=== PATIENT | male | born 1955 | race Caucasian/White ===

== ENCOUNTER 2016-08-11 11:54 | Emergency (ER) | payer MEDICARE, MEDICAID ==
[~2016-08-11] VITALS: Ht 167.6 cm; Wt 75.5 kg
[~2016-08-11 11:54] MED LIST: OMEP20TA86 PO; OXYC-176 PO; VIS25 PO; [UNRECOGNIZED DRUG - CODE] TOP; [UNRECOGNIZED DRUG - CODE] TP
[2016-08-11 11:56] VITALS: BP 139/91; PULSE 102; RESP 20; O2SAT 97
--- NOTE | 2016-08-11 12:08 | ED.REPORT ---
HPI-Allergic Reaction Date of Service Aug 11, 2016 ED Provider: Bolivar Montoya MD A 61 year old male with a history of psoriasis, smoking, seizures, anxiety, depression, and similar rash presents to the ED complaining of a rash. The rash is characterized by redness and itching. The pt has a lifelong history of similar symptoms which "go into remission sometimes." The rash began to worsen again recently, and he began feeling short of breath with chest tightness in the last three days. He believes that these symptoms may be related to anxiety. The pt has an appointment for this condition in two days, but did not feel that he could not wait for this. He denies history of blood clot. Nursing Notes Stated Complaint: HIVES,CONGESTION Chief Complaint: Allergic Reaction Nursing Notes Reviewed: Yes Allergies: Coded Allergies: No Known Allergies (Verified , 10/24/08) Uncoded Allergies: POLLENS (Allergy, Severe, SEVERE HAY FEVER, HIVES, 11/07/06) STERIODS (Allergy, Unknown, BONE DISEASE, 11/07/06) Scheduled Omeprazole-Expunged Drug, Do Not Renew! (Omeprazole-Expunged Drug, Do Not Renew! ) 20 Mg Tablet.dr 20 MG PO DAILY Oxycodone/APAP-Expunged Drug, Do Not Renew! (Percocet 5/325-Expunged Drug, Do Not Renew!) 1 Each Tablet 1 TAB PO TIDP Prednisone (PredniSONE) 20 Mg Tablet 40 MG PO DAILY Triamcinolone Acet (Triamcinolone Acetonide Cream) 1 Applic/0.25 Gm Cr 1 APPLIC EXT BID hydrOXYzine Maite-Expunged Drug, Do Not Renew! (Vistaril-Expunged Drug, Do Not Renew!) 25 Mg Capsule 25 MG PO Q6H Scheduled PRN Calcitriol-Expunged Drug, Do Not Renew! (Calcitriol-Expunged Drug, Do Not Renew! ) 100 Gm Oint...g. 100 GM TP TID PRN PRN For Itching Clobetasol-Expunged Drug, Do Not Renew! (Temovate 0.05%-Expunged Drug, Do Not Renew!) 60 Mg Tube 1 APPL TOP DAILY PRN PRN For Itching APPLY TO AFFECTED AREA General Time Seen by MD: 12:07 Chief Complaint Rash Hx Obtained From: Patient Arrived By: Walk-in Onset Occurred: More than a week ago... 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 Cardiovascular: Denies: Chest pain Psychiatric: Reports: Anxiety Physical Exam Initial Vital Signs Vital Signs (First) Date Time Temp Pulse Resp B/P Pulse Ox O2 Delivery O2 Flow Rate FiO2 08/11/16 11:56 36.4 102 20 139/91 97 Room Air Initial VS: Reviewed General/Constitutional: Awake, Alert Respiratory / Chest: Atraumatic, Breath sounds NL, Breath sounds = bilat, No respiratory distress Cardiovascular: Heart rate NL, Regular rhythm, Heart sounds NL Skin: Atraumatic, Color NL, Warm, Dry erythematous patches with central clearing on chest and back not raised Head / Eyes: Atraumatic, Normocephalic, PERRL, EOMI ENT: Atraumatic, Airway patent, Mucous membranes moist Abdomen: Atraumatic, Soft, Non-tender Neurologic: Oriented X3, Speech NL, No motor deficits, No sensory deficits Neck: Atraumatic, Supple, Full range of motion Back: Atraumatic, Full range of motion Upper Extremity / MS: Atraumatic, Full range of motion Lower Extremity / Pelvis / MS: Atraumatic, Full range of motion Psychiatric: Affect NL, Mood NL Interpretation & Diagnostics Lab Results Interpretation Result Diagram: 08/11/16 1226 08/11/16 1226 Test 08/11/16 12:26 White Blood Count 7.3th/mm3 (3.8-10.1) Red Blood Count 4.61mil/mm3 (4.40-5.80) Hemoglobin 15.8g/dL (13.8-17.2) Hematocrit 45.5% (41.0-50.0) Mean Corpuscular Volume 98.7fL (81-100) Mean Corpuscular Hemoglobin 34.3pg (27.0-35.0) Mean Corpuscular Hemoglobin Concent 34.7% (32.0-37.0) Red Cell Distribution Width 13.2% (12.3-15.4) Platelet Count 206bil/L (150-400) Neutrophils (%) (Auto) 66.4% (40-74) Lymphocytes (%) (Auto) 25.6% (14-46) Monocytes (%) (Auto) 5.2% (4-12) Eosinophils (%) (Auto) 2.2% (0-5) Basophils (%) (Auto) 0.1% (0-3) Sodium Level 135mEq/L (134-144) Potassium Level 4.0mEq/L (3.5-5.2) Chloride Level 95mEq/L (97-108) Carbon Dioxide Level 22mmol/L (18-29) Blood Urea Nitrogen 7mg/dL (6-24) Creatinine 0.89mg/dL (0.76-1.27) Estimat Glomerular Filtration Rate 93mL/min (>59) Glucose Level 218mg/dL (60-99) Calcium Level 8.7mg/dL (8.5-10.1) Total Bilirubin 0.7mg/dL (0.0-1.2) Aspartate Amino Transf (AST/SGOT) 48U/L (0-50) Alanine Aminotransferase (ALT/SGPT) 39U/L (0-44) Alkaline Phosphatase 95U/L (25-160) Troponin T < 0.010ug/L (0.0-0.011) Total Protein 8.0g/dL (6.4-8.4) Albumin 4.5g/dL (3.4-5.0) Hold Mccracken Top Tube Received (Received) ECG Interpretation ECG Interpretation: normal sinus rhythm with a rate of 84 T wave versions in V1 through V3 Time: 12:43 Interpreted by: ED physician X-Ray Chest Interpretation Chest Xray Interpretation: IMPRESSION: No acute disease Dictated by: Michael Mark M.D. on 08/11/2016 at 13:14 Approved by: Michael Mark M.D. on 08/11/2016 at 13:14 Interpretation / Wet Read by: Interpret - Radiologist Re-Eval/Medical Decision Med Decision/Clinical Course 61-year-old male presenting complaining of rash times several weeks. He reports he has had this his whole life. He reports it is slightly itchy. He also complained of some dyspnea but thought this was related to his anxiety. Vital signs stable. Chest x-ray clear. Labs are unremarkable. Troponins negative. Rash is nonblanching. Possible pityriasis. No hives at this time the patient reports he has had hives in the past. Patient was very concerned and requested IV Solu-Medrol and oral steroids he was given 1 dose. Discharged home with plan for oral steroids and topical steroid cream. He has follow-up with his doctor in 2 days. Return precautions given. Source of Hx: Old records Re-Evaluation/Progress : Time of Eval: 13:51 Patient Status: Condition improved Re-Evaluation/Progress Note: Pt rechecked, who is comfortable. He is informed of diagnosis and the plan for discharge. The pt understands and agrees with the plan. All questions are addressed at this time. Counseled Regarding: Diagnosis, Lab results, Need for follow-up, When/why to return to ED Discharge & Departure Primary Impression: Pityriasis rosea Additional Impression: Dyspnea Dyspnea type: unspecified Qualified Code: R06.00 - Dyspnea, unspecified Disposition: Home Discharge Condition All VS Reviewed: Yes Condition: Stable Patient Instructions: Acute Rash (ED) Additional Instructions: Your rash appears to be pityriasis patrice. Follow up with your primary care physician for further evaluation. Return to the ED if you develop any new or worsening symptoms. Referrals: Ulises Cuello MD (PCP) Jodee Attestation Portions of this note were transcribed by Roz Worley I, Dr. Montoya personally performed the history, physical exam and medical decision-making; I reviewed and confirmed the accuracy of the information in the transcribed note. Signed by: Jodee Pardo, 08/11/16 and 12:20. copies to: Ulises Cuello MD Risk Factors Risk Notes: PE risk negative Bolivar Montoya MD Aug 11, 2016 12:07 ROZ WORLEY Aug 11, 2016 12:20
[2016-08-11] MEDS ORDERED: MethylprednisoLONE Sodium Succinate 62.5 mg/mL 2 mL Inj IVPUSH ONE (12:15)
[2016-08-11 12:42] LABS: BASOPHILS % (AUTO) 0.1 % (0-3); EOSINOPHILS % (AUTO) 2.2 % (0-5); MONOCYTES % (AUTO) 5.2 % (4-12); Mean Corpuscular Hemoglobin 34.3 pg (27.0-35.0); Mean Corpuscular Volume 98.7 fL (81-100); NEUTROPHILS % (AUTO) 66.4 % (40-74); Platelet Count 206 bil/L (150-400)
--- NOTE | 2016-08-11 13:14 | DRSVH ---
PROCEDURE: X-RAY CHEST ONE VIEW, PORTABLE ([id number]) INDICATIONS: dyspnea TECHNIQUE: One view of the chest was acquired. COMPARISON: [facility], , CHEST 2VW, 03/17/2012, 17:18. FINDINGS: Surgical changes and devices: None. Lungs and pleura: No pleural effusions or pneumothorax. Lungs are clear. Mediastinum: Mediastinal contours appear normal. Heart size is normal. Bones and chest wall: No suspicious bony lesions. Overlying soft tissues appear unremarkable. IMPRESSION: No acute disease Dictated by: Michael Mark M.D. on 08/11/2016 at 13:14 Approved by: Michael Mark M.D. on 08/11/2016 at 13:14
[2016-08-11 13:27] LABS: TROPONIN T < 0.010 ug/L (0.0-0.011)
[2016-08-11] MEDS ORDERED: PRE20 PO (13:56)
[2016-08-11] MEDS ORDERED: KEN1C EXT (13:56)
[2016-08-11 14:37] VITALS: BP 134/80; PULSE 86; RESP 16; O2SAT 96
[2016-08-11 14:40] VITALS: BP 134/80; PULSE 86; RESP 16; O2SAT 96
== END 2016-08-11 13:55 | disposition home or self-care (01) ==
LOC: SED 11:54
DX: L42 Pityriasis rosea (principal); R06.00 Dyspnea, unspecified; E11.9 Type 2 diabetes mellitus without complications; L40.9 Psoriasis, unspecified; F32.9 Major depressive disorder, single episode, unspecified; F41.9 Anxiety disorder, unspecified; Z87.891 Personal history of nicotine dependence; Z79.891 Long term (current) use of opiate analgesic; Z79.899 Other long term (current) drug therapy
CPT/HCPCS: 36415; 71010; 80053; 84484; 85025; 93005; 96374; 96375; 99284; J1200; J2060; J2930

== ENCOUNTER 2016-08-13 20:38 | Inpatient (IN) | payer MEDICARE, MEDICAID ==
[~2016-08-13] VITALS: Ht 167.6 cm; Wt 75.0 kg
[~2016-08-13 20:38] MED LIST changes: +KEN1C EXT; +PRE20 PO
[2016-08-13 20:42] VITALS: BP 135/91; PULSE 94; RESP 18; O2SAT 95
[2016-08-13 21:40] LABS: BASOPHILS % (AUTO) 0.1 % (0-3); EOSINOPHILS % (AUTO) 0.1 % (0-5); MONOCYTES % (AUTO) 5.9 % (4-12); Mean Corpuscular Hemoglobin 34.5 pg (27.0-35.0); Mean Corpuscular Volume 97.8 fL (81-100); NEUTROPHILS % (AUTO) 78.1 % (40-74); Platelet Count 221 bil/L (150-400)
[2016-08-13 21:56] LABS: Magnesium 2.1 mg/dL (1.6-2.6)
--- NOTE | 2016-08-13 22:07 | ED.REPORT ---
HPI-Abd Pain M 40 and Over Date of Service Aug 13, 2016 ED Provider: Nicholas Ross MD A 61 year old male with a history of diabetes, pancreatitis, chronic pain, and anxiety presents to the ED complaining of abdominal pain. He believes that he is experiencing another episode of pancreatitis, the last episode of which was approximately eight years ago. The abdominal pain began last night and is accompanied by constipation, nausea, and decreased oral intake. He denies vomiting, diarrhea, or hematochezia. He suspects that his symptoms are related to a recent episode of hives due to a similar pattern of hives followed by a pancreatitis flare. The pt was seen two days ago for hives and received steroid treatment. The pain began after this point. The pt's last dose of pain medication was at 17:35. He denies alcohol or drug use. Nursing Notes Stated Complaint: STOMACH PAIN Chief Complaint: Male Abdominal Pain Nursing Notes Reviewed: Yes Allergies: Coded Allergies: No Known Allergies (Verified , 08/13/16) Scheduled Omeprazole-Expunged Drug, Do Not Renew! (Omeprazole-Expunged Drug, Do Not Renew! ) 20 Mg Tablet.dr 20 MG PO DAILY Oxycodone/APAP-Expunged Drug, Do Not Renew! (Percocet 5/325-Expunged Drug, Do Not Renew!) 1 Each Tablet 1 TAB PO TIDP Prednisone (PredniSONE) 20 Mg Tablet 40 MG PO DAILY Triamcinolone Acet (Triamcinolone Acetonide Cream) 1 Applic/0.25 Gm Cr 1 APPLIC EXT BID hydrOXYzine Maite-Expunged Drug, Do Not Renew! (Vistaril-Expunged Drug, Do Not Renew!) 25 Mg Capsule 25 MG PO Q6H Scheduled PRN Calcitriol-Expunged Drug, Do Not Renew! (Calcitriol-Expunged Drug, Do Not Renew! ) 100 Gm Oint...g. 100 GM TP TID PRN PRN For Itching Clobetasol-Expunged Drug, Do Not Renew! (Temovate 0.05%-Expunged Drug, Do Not Renew!) 60 Mg Tube 1 APPL TOP DAILY PRN PRN For Itching APPLY TO AFFECTED AREA General Time Seen by MD: 22:07 Chief Complaint Abdominal pain Hx Obtained From: Patient Arrived By: Walk-in Sudden in Onset?: No Onset Occurred: 1 day ago Symptom Duration: Since onset Recent Healthcare: Recent doctor visit, Recent hospitalization Similar Sx Previous: Yes Past Medical History Past Medical History seizures dyspnea with exertion reflux arthritis psoriasis diabetes anxiety depression diabetes pancreatitis chronic pain Past Surgical History left hip replacement left shoulder Social History no recreational drugs in "a long time" Alcohol Use: In recovery Ambulatory Status Independent Review of Systems Constitutional: Denies: Fever Respiratory: Denies: Non-productive cough Cardiovascular: Denies: Chest pain GI: Reports: Abdominal pain, Constipation, Nausea, Denies: Diarrhea, Vomiting Musculoskeletal: Denies: Back pain, Neck pain Complete sys rev & neg: except as marked. Physical Exam Initial Vital Signs Vital Signs (First) Date Time Temp Pulse Resp B/P Pulse Ox O2 Delivery O2 Flow Rate FiO2 08/13/16 20:42 36.1 94 18 135/91 95 Room Air Initial VS: Reviewed General/Constitutional: Awake, Alert Respiratory / Chest: Atraumatic, Breath sounds NL, Breath sounds = bilat, No respiratory distress Cardiovascular: Regular rhythm, Heart sounds NL Heart Rate / Rhythm: Positive: Tachycardia Abdomen: Atraumatic, Soft midepigastric tenderness Back: Atraumatic, Full range of motion Head / Eyes: Atraumatic, Normocephalic, PERRL, EOMI ENT: Atraumatic, Airway patent Mouth: Positive: Mucous membranes dry Skin: Atraumatic, Color NL, No rash, Warm, Dry Neurologic: Oriented X3, Speech NL, No motor deficits, No sensory deficits Neck: Atraumatic, Supple, Full range of motion Upper Extremity / MS: Atraumatic, Full range of motion Lower Extremity / Pelvis / MS: Atraumatic, Full range of motion Psychiatric: Affect NL, Mood NL Interpretation & Diagnostics Lab Results Interpretation Result Diagram: 08/13/16212408/13/162124 Test 08/13/16 21:25 White Blood Count 14.7th/mm3 (3.8-10.1) Red Blood Count 4.49mil/mm3 (4.40-5.80) Hemoglobin 15.5g/dL (13.8-17.2) Hematocrit 43.9% (41.0-50.0) Mean Corpuscular Volume 97.8fL (81-100) Mean Corpuscular Hemoglobin 34.5pg (27.0-35.0) Mean Corpuscular Hemoglobin Concent 35.3% (32.0-37.0) Red Cell Distribution Width 13.3% (12.3-15.4) Platelet Count 221bil/L (150-400) Neutrophils (%) (Auto) 78.1% (40-74) Lymphocytes (%) (Auto) 15.1% (14-46) Monocytes (%) (Auto) 5.9% (4-12) Eosinophils (%) (Auto) 0.1% (0-5) Basophils (%) (Auto) 0.1% (0-3) Sodium Level 134mEq/L (134-144) Potassium Level 3.5mEq/L (3.5-5.2) Chloride Level 94mEq/L (97-108) Carbon Dioxide Level 23mmol/L (18-29) Blood Urea Nitrogen 17mg/dL (6-24) Creatinine 0.90mg/dL (0.76-1.27) Estimat Glomerular Filtration Rate 92mL/min (>59) Glucose Level 208mg/dL (60-99) Calcium Level 8.9mg/dL (8.5-10.1) Magnesium Level 2.1mg/dL (1.6-2.6) Total Bilirubin 0.6mg/dL (0.0-1.2) Aspartate Amino Transf (AST/SGOT) 24U/L (0-50) Alanine Aminotransferase (ALT/SGPT) 28U/L (0-44) Alkaline Phosphatase 81U/L (25-160) Total Protein 7.9g/dL (6.4-8.4) Albumin 4.4g/dL (3.4-5.0) Lipase 167U/L (13-60) Hold Mccracken Top Tube Received (Received) CT Abd / Pelvis Interpretation CONCLUSION: Pancreatic head abnormalities are nonspecific, may reflect acute pancreatitis. Neoplasm is not excluded. No ductal dilation. Interpretation / Wet Read by: Interpret - Radiologist Re-Eval/Medical Decision Med Decision/Clinical Course 61-year-old with remote chronic pancreatitis, relatively symptom and problem free for the past eight years, presents now with pancreatitis. He has his typical pain and midepigastric radiating to his back, and interestingly, onset after incidence of hives, as was the case 8 years ago. He is lipase is fairly trivially elevated at 167, but his CT scan shows fluid around the head of the pancreas and the possibility of a developing pseudocyst. He is admitted, but no bed available here, and discussion with gastroenterology at [facility] suggests that he will be better served at a referral center. No beds available on the the [facility] at the moment, but [facility] is willing and principal to admit, once a bed becomes available. Source of Hx: Old records Time of Eval: 02:10 Re-Evaluation/Progress Note: Pt rechecked, who is comfortable. He is informed of his radiology results and the need for admission or transfer. The pt understands and agrees with the plan. All questions are addressed at this time. Consultation #1: Call Returned at: 02:27 Note: Spoke to [facility] transfer center regarding pt's case. [facility] does not accept transfer. Consultation #2: Call Returned at: 02:39 Note: Spoke with [facility] transfer center regarding pt's case. [facility] does not have beds open. Consultation #3: Call Returned at: 03:14 Note: Spoke with [facility] regarding pt's case. [facility] does not have a bed at this time. Counseled Regarding: Diagnosis, Lab results, Need for transfer Discharge & Departure Primary Impression: Pancreatitis Additional Impressions: Chronic pancreatitis Pancreatic pseudocyst Vital Signs - All Vital Signs Date Time Temp Pulse Resp B/P Pulse Ox O2 Delivery O2 Flow Rate FiO2 08/14/16 03:45 36.8 89 142/75 Room Air 08/14/16 00:55 36.5 94 18 140/89 95 Room Air 08/13/16 20:42 36.1 94 18 135/91 95 Room Air )( All Prior VS Reviewed: Yes Condition: Stable Referrals: Marysol Leong (PCP) Care Transferred to: Dr. Walton Care Transferred at: 06:00 Jodee Attestation Portions of this note were transcribed by Roz Worley I, Dr. Ross personally performed the history, physical exam and medical decision-making; I reviewed and confirmed the accuracy of the information in the transcribed note. Signed by: Jodee Pardo, 08/14/16 and 02:45. copies to: Marysol Leong Christopher W MD Aug 13, 2016 22:07 ROZ WORLEY Aug 13, 2016 22:33
[2016-08-13] MEDS ORDERED: Ondansetron 2 mg/mL 2 mL Inj IVPUSH ONE (22:20)
[2016-08-13] MEDS ORDERED: 0.9% Sodium Chloride 1,000 ML IV SCH (22:20)
[2016-08-13] MEDS: HYDROmorphone 1 mg/mL Inj IVPUSH PRN (23:48)
[2016-08-14] MEDS: HYDROmorphone 1 mg/mL Inj IVPUSH PRN (00:35)
[2016-08-14] MEDS ORDERED: MethylprednisoLONE Sodium Succinate 40 mg/mL Inj IVPUSH ONE ×2 (03:05→07:55)
[2016-08-14] MEDS ORDERED: HYDROmorphone 1 mg/mL Inj IVPUSH ONE ×2 (03:30→07:55)
[2016-08-14 03:45] VITALS: BP 142/75; PULSE 89
[2016-08-14] MEDS: 0.9% Sodium Chloride 1,000 ML IV SCH ×3 (05:53→14:43)
[2016-08-14 07:16] VITALS: BP 120/78; PULSE 75; RESP 15; O2SAT 95
[2016-08-14 08:48] LABS: APPEARANCE,URINE CLEAR (CLEAR,HAZY); COLOR,URINE YELLOW (YELLOW); OCCULT BLOOD,URINE NEGATIVE (NEGATIVE); PH,URINE 6.5 (5.0-8.0); UROBILINOGEN,URINE NORMAL (NORMAL)
[2016-08-14] MEDS ORDERED: HYDROmorphone PCA 0.2 mg/mL 30 mL Inj IV PRN (10:40)
[2016-08-14] MEDS ORDERED: Alum-Mag Hydrox-Simeth 30 mL Suspension PO PRN ×2 (10:40→13:50)
[2016-08-14] MEDS ORDERED: Ondansetron 2 mg/mL 2 mL Inj IVPUSH PRN (10:40)
--- NOTE | 2016-08-14 10:46 | DRSVH ---
PROCEDURE: CT ABDOMEN AND PELVIS WITHOUT CONTRAST ([id number]) INDICATIONS: pancreatitis TECHNIQUE: Noncontrast 5 mm thick sections acquired from the diaphragms to the symphysis. 5 mm coronal and sagi ttal reformats were then performed. For radiation dose reduction, the following was used: automated exposure control, adjustment of mA and/or kV according to patient size. COMPARISON: [facility], CT, ABD/PELVIS W/CON (PNL), 01/15/2013, 3:26. [facility], CT, ABD/PELVIS W/CON (PNL), 10/25/2008, 13:33. [facility], CT, ABD/PELVIS W/CON (PN L), 09/14/2013, 13:08. FINDINGS: Image quality: Excellent. ABDOMEN: Lung bases: Lung bases are clear. Heart size is normal. Solid organs: Liver and spleen are normal in size. Gallbladder is normal. There is mild stranding a round the pancreatic head. There is a 1.2 cm hypodensity in the pancreatic head, most likely a cyst. It appears unchanged from 01/15/2013. A punctate calcification is noted in the uncinate process. No pa ncreatic duct dilation. No adrenal nodules. Kidneys are normal in size, without hydronephrosis or ne phrolithiasis. Peritoneum and bowel: Unenhanced bowel loops demonstrate normal wall thickness and caliber. There a re scattered colonic diverticula. No evidence for active diverticulitis. No free fluid or air. Nodes and vessels: No retroperitoneal or mesenteric adenopathy by size criteria. Aorta and inferior vena cava are normal in caliber. Moderate distal aortic calcification consistent with atheroscleros is. Miscellaneous: No ventral hernias. PELVIS: Genitourinary: Bladder wall thickness is normal. Miscellaneous: No inguinal hernias or adenopathy. Bones: No suspicious bony lesions. No vertebral body compression fractures. IMPRESSION: 1. There is soft tissue stranding in the pancreatic head consistent with clinical diagnosis of pancre atitis. 2. A 1.2 cm low density nodule in the peripancreatic head, which appears stable. It is most likely a cyst. 3. Punctate calcification in the uncinate process of pancreas, probably sequelae of chronic pancreati tis. 4. Diverticulosis. No active diverticulitis. No significant discrepancy with the administration dean radiology preliminary report. Dictated by: Celeste Nava M.D. on 08/14/2016 at 10:21 Approved by: Celeste Nava M.D. on 08/14/2016 at 10:44
[2016-08-14 10:52] VITALS: BP 112/76; PULSE 73; RESP 15; O2SAT 93
[2016-08-14] MEDS ORDERED: HYDROmorphone 0.5 mg/0.5 mL iSecure Syringe IVPUSH PRN (11:30)
[2016-08-14] MEDS ORDERED: OXYC-474 PO (13:35)
[2016-08-14] MEDS ORDERED: ZOLP10TA5 PO (13:41)
[2016-08-14] MEDS ORDERED: Polyethylene Glycol (PEG) 17 Gm Powder PO PRN (13:50)
--- NOTE | 2016-08-14 14:11 | CONS ---
[address] [address] CONSULTATION REPORT PATIENT: WILLIAM GARCÍA : 1955 MR#: [id number] ADMIT: 08/14/2016 JOB ID: [id number] DATE OF SERVICE: 08/14/2016 GASTROENTEROLOGY CONSULTATION: REASON FOR CONSULTATION: Abdominal pain. HISTORY OF PRESENT ILLNESS: A 61-year-old male with a history of chronic pancreatitis diagnosed in x3. This is his third episode. History of alcohol abuse in which he used to drink a half a pint of whiskey per day along with a six pack of beer per day in for 4-7 years, last drink last week, history of diabetes, anxiety, who presents for consultation for epigastric pain for the past two days. The patient complains of epigastric pain, 10/10, sharp, radiating to the back, constant, worse with food. The patient states that this was probably another episode of pancreatitis. The patient had an EGD three years ago which was normal, a colonoscopy also three years ago which showed colon polyps. I have no records. The patient states that he does eat a lot of greasy food. The patient denies family history of colon cancer, inflammatory bowel disease or celiac disease. The patient denies rectal bleeding, nausea, vomiting, hematemesis, change in bowel habits or unintentional weight loss. The patient states he was told in the past his pancreatitis is most likely due to his alcohol use. PAST MEDICAL HISTORY: As stated above. PAST SURGERIES: He has an ex lap due to trauma in the incision midline of his abdomen and the patient states nothing was removed. No known drug allergies. MEDICATIONS AT HOME: 1. Omeprazole. 2. Percocet. 3. Prednisone 40 mg once a day. 4. Triamcinolone. 5. Hydroxyzine. PAST SURGICAL HISTORY: 1. Left hip replacement. 2. Left shoulder surgery. PAST MEDICAL HISTORY: Includes: 1. Seizures. 2. GERD. 3. Arthritis. 4. Psoriasis. 5. Diabetes. 6. Anxiety. 7. Depression. 8. Chronic pain. SOCIAL HISTORY: He is a recovering alcoholic in which he used to drink half a pint of whiskey per day and a six pack of beer per day for four years in , last drink last week. FAMILY HISTORY: Negative for colon cancer, inflammatory bowel disease or celiac disease. REVIEW OF SYSTEMS: The patient denies headache, blurred vision, nausea, vomiting, chest pain, shortness. Positive for abdominal pain. No skin rash, or joint pain. PHYSICAL EXAMINATION: Vital signs upon presentation: His temperature is 36.1, pulse 73, blood pressure 112/76, respiratory rate 15, satting 93% in room air. General: In no acute distress. Head: No scars. Eyes: Anicteric. Throat: Supple. Lungs: Clear to auscultation bilaterally. Cardiovascular: Regular rhythm and rate. Abdomen: Soft, nondistended. Positive diffuse pain, especially epigastric pain upon palpation. Normoactive bowel sounds. Midline scar has been seen in the 12-6 o'clock fashion. Extremities: No cyanosis, clubbing or edema. LABORATORIES: White count 14.7, hemoglobin 15.5, hematocrit 43, platelet count 221. Sodium 134, potassium 3.5, chloride 94, bicarbonate 23, BUN 17, creatinine 0.9, glucose 208, calcium 8.9, magnesium 2.1. Total bili was 0.6. AST 24, AST 20, alk phos 81, total protein 7.9. Albumin 4.4. Lipase 167. He underwent a CT of the abdomen and pelvis which was performed with no contrast on August 14, 2016 shows soft-tissue stranding pancreatic head consistent with pancreatitis, 1.2 cm low-density nodule of the peripancreatic head which appears most likely a cyst, calcifications in the uncinate process of the pancreas most likely due to chronic pancreatitis and diverticulosis but no diverticulitis. ASSESSMENT AND PLAN: This is a 61-year-old male with a history of chronic pancreatitis currently third episode, history of alcohol abuse in which he used to drink a half pint of whiskey per day and a six pack of beer per day for four years in the , last drink one week ago, history of seizures, diabetes, arthritis, psoriasis, anxiety, depression, chronic pain, presents here for epigastric pain with a CT scan consistent with acute or chronic pancreatitis. The patient denies any recent URI or infections. The patient did drink recently in the past week. RECOMMENDATIONS: 1. N.p.o., IV fluids, pain control. 2. Serial abdominal examinations. 3. MRCP. 4. Will continue to follow.
[2016-08-14 16:16] VITALS: BP 144/87; PULSE 73; RESP 18; O2SAT 94
--- NOTE | 2016-08-14 16:45 | NUR ---
admission patient admitted to [facility] rm 246-2 at 1445hrs.
--- NOTE | 2016-08-14 17:58 | DRSVH ---
PROCEDURE: MRI ABDOMEN WITHOUT CONTRAST ([id number]) INDICATIONS: pancreatitis TECHNIQUE: Coronal HASTE through the abdomen, axial 2-D FLASH in- and [id number], and breath-hold T2 FSE with fat saturation through the biliary system and pancreas. Oblique coronal and axial thin-slice HASTE, radial thick-slab HASTE centered on the extrahepatic bile ducts. Intravenous secretin: Not requested. COMPARISON: [facility], CT, CT ABD PELVIS WO CON, 08/14/2016, 1[facility]27[facility], 19:54. FINDINGS: Image quality: Excellent. Pancreas and biliary system: Intra-hepatic biliary ducts are non dilated. Common bile duct is promi nent measuring up to 11 mm, tapering to normal caliber at the ampulla. No obstructing stones or esteban s are identified. There is a 11 mm cyst in pancreatic head, unchanged from the last exam. Pancreas is normal in morphology, without adjacent soft tissue edema. Pancreatic duct is mildly dilated measuri ng up to 4 mm. The accessory pancreatic duct (duct of Santorini) is not visualized, which could be du e to non-draining duct of Santorini (a variant). Gallbladder is normal. Other solid organs: There are couple of hepatic cysts. Liver and spleen are normal in size. No adre nal nodules. Both kidneys are normal in size, without hydronephrosis. Nodes and vessels: No retroperitoneal or mesenteric adenopathy by size criteria. Aorta and inferior vena cava are normal in size. Bowel and peritoneum: Unenhanced bowel loops are normal in caliber. Trace amount of free fluid in th e upper abdomen. Lung bases: No basal pleural effusions. Heart size is normal. Bones and soft tissues: No ventral hernias. Bone marrow is of normal overall signal. IMPRESSION: 1. Prominent common bile duct measuring 11 mm, which tapers to normal caliber at the ampulla. No obst ructive stones or masses. 2. A 1.1 cm cyst in the pancreatic head, unchanged from 09/10/2013. 3. Mild pancreatic duct dilation. The accessory pancreatic duct (duct of Santorini) is normal visuali zed, which could be due to rudimentary nondraining duct of Santorini. 4. A trace amount of free fluid in the upper abdomen. 5. Hepatic cysts. Dictated by: Celeste Nava M.D. on 08/14/2016 at 17:51 Transcribed by: RIANA on 08/14/2016 at 17:58 Approved by: Celeste Nava M.D. on 08/14/2016 at 20:31
[2016-08-14] MEDS: Ondansetron 2 mg/mL 2 mL Inj IVPUSH PRN (18:01)
--- NOTE | 2016-08-14 18:10 | NUR ---
Abdominal pain pain continue to c/o upper abdominal pain consistently rating 8/10. after giving IV morphine 2 mg. patient reported 8/10 post intervention, but stated "I'm okay for now". patient also reporting mild nausea and anxiety. 0.5mg of IV ativan given, patient reports feeling a "little better". continue to monitor.
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
[2016-08-15 00:58] VITALS: BP 122/75; PULSE 76; RESP 18; O2SAT 93
[2016-08-15] MEDS: Ondansetron 2 mg/mL 2 mL Inj IVPUSH PRN ×2 (01:04→06:48)
[2016-08-15] MEDS: 0.9% Sodium Chloride 1,000 ML IV SCH ×2 (02:57→15:51)
--- NOTE | 2016-08-15 04:59 | NUR ---
Pain/Anxiety Complained of abdominal pain 8/10. Received IV Morphine and reported pain 7/10, but also states pain is better. Noted to be sleeping following pain medication administration. Complained that he felt scared and anxious. Requested something for anxiety. Received IV Ativan and was able to fall asleep.
[2016-08-15 06:01] LABS: Mean Corpuscular Hemoglobin 34.3 pg (27.0-35.0); Mean Corpuscular Volume 99.5 fL (81-100)
--- NOTE | 2016-08-15 07:50 | PCM.PNSURG ---
Subjective Date of Service: Aug 15, 2016 Date of Service: Aug 15, 2016 Visit Information: Subjective: abdominal pain 9/10 this am. Pt states had rough night with pain. Postop General: No Complaints Objective Vital Sign- Last 8 Hours Date Time Temp Pulse Resp B/P Pulse Ox O2 Delivery O2 Flow Rate FiO2 08/15/16 00:58 36.5 76 18 122/75 93 Room Air Intake and Output- Last 8 Hour 08/15/16 Cumulative From/Thru 07:00 08/13/16 20:42 - 08/15/16 05:54 Intake Total 2424 ml 5674 ml Output Total 1150 ml 1800 ml Balance 1274 ml 3874 ml Intake Oral 300 ml 550 ml IV Total 2124 ml 5124 ml Output Urine Total 1150 ml 1800 ml # Voids 4 General: Oriented X3 Neck: Supple Lungs: Clear to Auscultation Heart: Exam Unremarkable Abdomen: Benign, Soft, Appropriately tender, Non-distended, Normoactive bowel tones Extremities: Distal Pulses Palpable Result Diagram: 08/15/16 0540 08/15/16 0540 Assessment & Plan Impression This is a 61-year-old male with a history of chronic pancreatitis currently third episode, history of alcohol abuse in which he used to drink a half pint of whiskey per day and a six pack of beer per day for four years in the , last drink one week ago, history of seizures, diabetes, arthritis, psoriasis, anxiety, depression, chronic pain, presents here for epigastric pain with a CT scan consistent with acute or chronic pancreatitis. The patient denies any recent URI or infections. The patient did drink recently in the past week. transaminases normal. mri abdomen 08/14/16- IMPRESSION: 1. Prominent common bile duct measuring 11 mm, which tapers to normal caliber at the ampulla. No obstructive stones or masses. 2. A 1.1 cm cyst in the pancreatic head, unchanged from 09/10/2013. 3. Mild pancreatic duct dilation. The accessory pancreatic duct (duct of Santorini) is normal visualized, which could be due to rudimentary nondraining duct of Santorini. 4. A trace amount of free fluid in the upper abdomen. 5. Hepatic cysts. RECOMMENDATIONS: 1. N.p.o., IV fluids, pain control per hospitalist team. 2. Serial abdominal examinations. Will continue to follow. Problems: VTE Prophylaxis: Sub-Q Heparin (Unfractionated) Resuscitation Status: CPR: Attempt Resuscitation Ulises Albright MD Aug 15, 2016 07:50
[2016-08-15] MEDS: Pantoprazole 4 mg/mL 10 mL Inj IVPUSH SCH (08:16)
--- NOTE | 2016-08-15 08:33 | NUR ---
Increased pain this amp patient reports increased abdominal pain 9/10 described as cramping with nausea stating, "I'm feel awful, can't get comfortable". patient reports that current pain medication hasn't been that effective. I paged and spoke with Dr Hamm. Dr Hamm stated he'll review and order something for him. continue to monitor.
[2016-08-15 09:45] VITALS: BP 108/74; PULSE 85; RESP 18; O2SAT 95
--- NOTE | 2016-08-15 13:43 | NUR ---
Social Work: Initial Assessment D: Per EMR review, pt is a 61 year old male admitted for acute pancreatitis. Pt is Medicare with no supplement or LTC insurance; pt has no VA benefits. PCP is VITOR Bryson. NOK is Dalila Garvey, S/o, . Advanced directives not completed- information provided by [employer]. Readmit score is moderate, 4/8. [employer] met with pt at bedside. Sw role explained and contact info provided. See initial assessment. Pt lives in [place] in a single-story home with his s/o. Pt is I with all ADLS and uses a cane. Pt states he continues to drive and has never had HH or skilled rehab. Pt anticipates no needs at time of discharge and states his s/o will transport him home. [employer] inquired about pt's substance abuse history. Pt denies any current use stating "I'm too old for that now." Pt reports he has a history with [facility] "15-20 years ago." Pt would not elaborate on his substance use history. Pt declined further CD resources from [employer]. A: Pt who is I at baseline and has been SBA during admission. P: Anticipate pt to discharge home via POV; no sw needs identified at this time. [employer] to continue to follow if needs arise. WILNER Perla Addendum: 08/15/16 at 1348 by COLLINS ASHLEY SS Amended: Links added.
[2016-08-15] MEDS: HYDROmorphone 0.5 mg/0.5 mL iSecure Syringe IVPUSH PRN ×2 (14:27→19:14)
--- NOTE | 2016-08-15 14:56 | NUR ---
spiritual care: pt request Visited with pt today who was feeling very anxious about his medications. Talked for a few minutes about ways of keeping peace of mind. Offered a blessing before leaving the room. Spiritual care will continue to follow as needed.
--- NOTE | 2016-08-15 15:17 | PCM.PNMED ---
Subjective Date of Service Aug 15, 2016 Subjective Follow-up for acute pancreatitis Patient seen and examined at bedside, he is complaining of abdominal pain and wants higher dose of pain medication. No nausea, vomiting or diarrhea, no fever, no chills. Lipase trending down Exam Vital Signs Vital Sign - Last Date Time Temp Pulse Resp B/P Pulse Ox O2 Delivery O2 Flow Rate FiO2 08/15/16 09:45 36.6 85 18 108/74 95 Room Air Intake and Output 08/14/16 08/14/16 08/15/16 Cumulative From/Thru 15:00 23:00 07:00 08/13/16 20:42 - 08/15/16 05:54 Intake Total 1250 ml 0 ml 2424 ml 5674 ml Output Total 550 ml 100 ml 1150 ml 1800 ml Balance 700 ml -100 ml 1274 ml 3874 ml Intake Oral 250 ml 300 ml 550 ml IV Total 1000 ml 0 ml 2124 ml 5124 ml Output Urine Total 550 ml 100 ml 1150 ml 1800 ml # Voids 2 2 4 Exam General. Well-nourished male, in the component of the HEENT: Sclerae anicteric Mouth: Muscle mucosa Chest: No chest wall tenderness, normal respiratory effort Lung: Clear bilaterally wheezing Heart : regular rate and rhythm abdomen: soft ., Mild tenderness on deep palpation epigastric area. No palpable mass Extremity: No edema, no cyanosis IVs and Medications Medications Reviewed: Medications were reviewed in detail Lab and Diagnostics Result Diagram: 08/15/16 0540 08/15/16 0540 X-Rays, CTs and MRIs Abdominal CT scan reviewed : 1. There is soft tissue stranding in the pancreatic head consistent with clinical diagnosis of pancreatitis. 2. A 1.2 cm low density nodule in the peripancreatic head, which appears stable. It is most likely a cyst. 3. Punctate calcification in the uncinate process of pancreas, probably sequelae of chronic pancreatitis. 4. Diverticulosis. No active diverticulitis. Assessment & Plan 1. Acute pancreatitis Somewhat better today. Tolerating clear liquid diet for breakfast Lipase trending down significantly. Continue IV hydration until oral intake is adequate. Omeprazole 40 g IV daily via Discontinue morphine sulfate for pain. Start diluted 0.5 mg IV when necessary his as needed for pain CMP and lipase level in a.m. MRCP reviewed and showed : Prominent common bile duct measuring 11 mm, which tapers to normal caliber at the ampulla. No obstructive stones or masses. A 1.1 cm cyst in the pancreatic head, unchanged from 09/10/2013. Mild pancreatic duct dilation. The accessory pancreatic duct (duct of Santorini) is normal visualized, which could be due to rudimentary nondraining duct of Santorini. 5: . Hepatic cysts. 2. Type II diabetes : A1c 6.7. Patient is known to have diabetes but not on any antihyperglycemic agents. I discussed about this is the time to start medication. He will discuss the subject with his primary care doctor in discharge. Continue diabetic diet for now 3. Hypertension 4 Leukocytosis : Improved Reactive likely reactive to pancreatitis. Patient has no clinical sign or symptoms of infection . Repeat CBC is within normal limits 5. Anxiety disorder : Xanax 0.5 mg orallyPRN. 6. Tobaccoism : Smoking cessation discussed 7. Itching: When necessary Benadryl Patient is doing quite better today from pancreatitis standpoint He is tolerating liquid diet and lipase is is trending down, nevertheless is asking for stronger pain medication Patient is a chronic narcotic user. Upgrade diet to full liquid and advance as tolerated. GI consultation and recommendation appreciated Out of bed encouraged. Discharge anticipated within 24 hours Pain Evaluation: Adequate Pain Control VTE Prophylaxis: Sub-Q Heparin (Unfractionated) Resuscitation Status: CPR: Attempt Resuscitation Time spent 25 minutes Ulises Hamm MD Aug 15, 2016 15:17
--- NOTE | 2016-08-15 15:35 | NUR ---
Hives patient reports hives to face/temples and arms. noted several small red raised areas at temples and left arm. patient also reports itching to back of neck and scalp. Dr Hamm notified IV benadryl 25mg ordered. first dose given at 1512hrs. At 1540hrs hives have shown slight improvement. continue to monitor.
[2016-08-15 16:37] VITALS: BP 111/66; PULSE 68; RESP 18; O2SAT 93
[2016-08-15 19:45] VITALS: BP 101/69; PULSE 76; RESP 17; O2SAT 93
[2016-08-16] MEDS: HYDROmorphone 0.5 mg/0.5 mL iSecure Syringe IVPUSH PRN (01:47)
[2016-08-16] MEDS: Ondansetron 2 mg/mL 2 mL Inj IVPUSH PRN (01:47)
[2016-08-16 04:05] VITALS: BP 118/70; PULSE 57; RESP 18; O2SAT 95
[2016-08-16] MEDS: 0.9% Sodium Chloride 1,000 ML IV SCH (04:43)
--- NOTE | 2016-08-16 06:42 | NUR ---
Hives Hives noted on back for which patient reports will get worse without prednisone. Other than itching no other symptoms noted. MD notified and evaluated patient at bedside. Benadryl given per MD orders and frequent monitoring. Hives noted to be resolving by end of shift.
--- NOTE | 2016-08-16 07:30 | NUR ---
Diet Dr. Albright on the unit, he stated he has just met with patient and will allow patient to try some soft foods, stated to try patient on some cream of wheat first and then possibly advance diet if tolerated.
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
[2016-08-16 07:58] VITALS: BP 132/83; PULSE 64; RESP 16; O2SAT 96
[2016-08-16] MEDS: Pantoprazole 4 mg/mL 10 mL Inj IVPUSH SCH (08:03)
--- NOTE | 2016-08-16 10:40 | NUR ---
Morning Rounds Staffed patients case with Dr. Hamm and case management/social group worker. Dr. Hamm stated he will be seeing patient today and stated discharge may be possible today.
--- NOTE | 2016-08-16 11:04 | PCM.DIMED ---
Discharge Instructions Date of Service Aug 16, 2016 Dates of Hospitalization Aug 14, 2016 at 13:01 Discharge Diagnosis Discharge Diagnosis Acute pancreatitis, Tobaccoism, Anxiety Disorder, Type II diabetes ,Leukocytosis Diet Low fat, Low Sodium, Diabetic Activity No restrictions Patient Instructions Follow-up in: 1 week (Primary Care Doctor ) Ulises Hamm MD Aug 16, 2016 11:04
--- NOTE | 2016-08-16 12:45 | NUR ---
Discharge Note Provided all discharge instructions and education to patient at this time, no questions. IV discontinued for discharge. Patient was given home medications. Patient gathered all belongings to have ready when arrives to pick him up. Patient will be transported home by .
--- NOTE | 2016-08-16 13:30 | PCM.DC.MED ---
Discharge Summary Date of Service Aug 16, 2016 Dates of Hospitalization Date of Hospital Admission Aug 14, 2016 at 13:01 Date of Discharge: Aug 16, 2016 Providers: Admitting Physician: Ulises Hamm MD Primary Care Physician: Marysol Leong Attending Physician: Ulises Hamm MD Diagnosis at Time of Discharge Diagnosis at Time of Discharge Acute pancreatitis, Tobaccoism, Anxiety Disorder, Type II diabetes ,Leukocytosis Consultations Gastroenterology Procedures XRay, CTs & MRIs Abdominal CT scan reviewed : 1. There is soft tissue stranding in the pancreatic head consistent with clinical diagnosis of pancreatitis. 2. A 1.2 cm low density nodule in the peripancreatic head, which appears stable. It is most likely a cyst. 3. Punctate calcification in the uncinate process of pancreas, probably sequelae of chronic pancreatitis. 4. Diverticulosis. No active diverticulitis. Brief History A 61 year old male with a history of hypertension, type II diabetes diet- controlled, coronary pancreatitis, chronic pain, and anxiety presents to the ED complaining of abdominal pain. Patient was seen Friday in the hospital complaining about his and was prescribed a short course of prednisone and sent home. He believes that he is experiencing another episode of pancreatitis similar to, the last episode of which was approximately eight years ago after he was exposed to prednisone he said. The abdominal pain began last night and is accompanied by constipation, nausea, and decreased oral intake. He endorses nausea but denies vomiting, diarrhea. No chest pain, shortness of breath, no fever, no chills Patient denied any alcohol intake. Workup in the emergency room including a CT scan of the abdomen which shows fat stranding in the head of the pancreatic compatible with pancreatitis and elevated lipase level noted on lab testing. Hospital Course 1. Acute pancreatitis MRCP showed : Prominent common bile duct measuring 11 mm, which tapers to normal caliber at the ampulla. No obstructive stones or masses. A 1.1 cm cyst in the pancreatic head, unchanged from 09/10/2013. Mild pancreatic duct dilation. The accessory pancreatic duct (duct of Santorini) is normal visualized, which could be due to rudimentary nondraining duct of Santorini. His symptoms Improved with conservative management. Lipase on back to normal. 5: . Hepatic cysts. 2. Type II diabetes : A1c 6.7. Patient is known to have diabetes but not on any antihyperglycemic agents. I discussed about this is the time to start medication. He will discuss the subject with his primary care doctor in discharge. Continue diabetic diet in the interim 3. Hypertension 4 Leukocytosis : Improved Reactive likely reactive to pancreatitis. Patient has no clinical sign or symptoms of infection . 5. Anxiety disorder : Xanax 0.5 mg orallyPRN. 6. Tobaccoism : Smoking cessation discussed. Patient declined nicotine patch Patient is discharged home in stable condition. Follow-up as outpatient with primary care doctor in a week Exam Vital Signs (Last) Date Time Temp Pulse Resp B/P Pulse Ox O2 Delivery O2 Flow Rate FiO2 08/16/16 07:58 36.6 64 16 132/83 96 Room Air Exam General. NAD. In bed comfortably HEENT: Sclerae anicteric Mouth: Moist mucosa, no oral thrush Chest: No chest wall tenderness, normal respiratory effort Lung: Clear bilaterally wheezing, Zocor,, no wheezing Heart : regular rate and rhythm abdomen: soft . Non tender. Audible and normal bowel sounds all quadrants Extremity: No edema, no cyanosis. Neuro : AAO x 3. Grossly non focal Test 08/13/16 21:25 08/14/16 08:30 08/14/16 15:01 08/15/16 03:00 Neutrophils (%) (Auto) 78.1% (40-74) Lymphocytes (%) (Auto) 15.1% (14-46) Monocytes (%) (Auto) 5.9% (4-12) Eosinophils (%) (Auto) 0.1% (0-5) Basophils (%) (Auto) 0.1% (0-3) Magnesium Level 2.1mg/dL (1.6-2.6) Hold Mccracken Top Tube Received (Received) Urine Color Yellow (YELLOW) Urine Appearance Clear (CLEAR,HAZY) Urine pH 6.5 (5.0-8.0) Urine Specific Menard 1.020 (1.003-1.035) Urine Protein 1000mg/dL (NEG,TRACE) Urine Glucose (UA) Negativemg/dL (NEGATIVE) Urine Ketones Negativemg/dL (NEGATIVE) Urine Occult Blood Negative (NEGATIVE) Urine Nitrite Negative (NEGATIVE) Urine Bilirubin Negative (NEGATIVE) Urine Urobilinogen Normalmg/dL (NORMAL) Urine Leukocyte Esterase Negative (NEGATIVE) Urine RBC 0-2/hpf (0-2) Urine WBC 0-5/hpf (0-5) Urine Epithelial Cells Occasional/hpf (NONE-MOD) Urine Crystals None seen (NONE SEEN) Urine Bacteria Few/hpf (NONE-FEW) Urine Hyaline Casts None/lpf (NONE) Urine Granular Casts None seen (NONE SEEN) Urine Waxy Casts None seen (NONE SEEN) Urine Red Blood Cell Casts None seen (NONE SEEN) Urine White Blood Cell Casts None seen (NONE SEEN) Urine Mucus Present (None Seen) Urine Trichomonas None seen (NONE SEEN) Urine Yeast None (NONE SEEN) Urinalysis Comment None Urine Culture Reflexed Not indicated Hemoglobin A1c 6.7% (4.8-5.6) Hold Urine Received (Received) Test 08/15/16 05:40 08/16/16 05:50 White Blood Count 7.1th/mm3 (3.8-10.1) Red Blood Count 3.94mil/mm3 (4.40-5.80) Hemoglobin 13.5g/dL (13.8-17.2) Hematocrit 39.2% (41.0-50.0) Mean Corpuscular Volume 99.5fL (81-100) Mean Corpuscular Hemoglobin 34.3pg (27.0-35.0) Mean Corpuscular Hemoglobin Concent 34.4% (32.0-37.0) Red Cell Distribution Width 13.0% (12.3-15.4) Platelet Count 177bil/L (150-400) Triglycerides Level 384mg/dL (0-149) Cholesterol Level 224mg/dL (100-199) LDL Cholesterol, Calculated 106.200mg/dL (0-99) VLDL Cholesterol 76.800mg/dL HDL Cholesterol 41mg/dL (>39) Cholesterol/HDL Ratio 5.46 (0.0-4.4) Sodium Level 137mEq/L (134-144) Potassium Level 4.2mEq/L (3.5-5.2) Chloride Level 102mEq/L (97-108) Carbon Dioxide Level 20mmol/L (18-29) Blood Urea Nitrogen 12mg/dL (6-24) Creatinine 0.83mg/dL (0.76-1.27) Estimat Glomerular Filtration Rate 101mL/min (>59) Glucose Level 175mg/dL (60-99) Calcium Level 8.0mg/dL (8.5-10.1) Total Bilirubin 0.5mg/dL (0.0-1.2) Aspartate Amino Transf (AST/SGOT) 36U/L (0-50) Alanine Aminotransferase (ALT/SGPT) 30U/L (0-44) Alkaline Phosphatase 65U/L (25-160) Total Protein 6.4g/dL (6.4-8.4) Albumin 3.5g/dL (3.4-5.0) Lipase 22U/L (13-60) Discharge Medications Discharge Medications Omeprazole-Expunged Drug, Do Not Renew! (Omeprazole-Expunged Drug, Do Not Renew! ) 20 Mg Tablet.dr 20 MG PO DAILY (Reported) Triamcinolone Acet (Triamcinolone Acetonide Cream) 1 Applic/0.25 Gm Cr 1 APPLIC EXT BID Prescribed by: JOHANA COOK As needed Calcitriol-Expunged Drug, Do Not Renew! (Calcitriol-Expunged Drug, Do Not Renew! ) 100 Gm Oint...g. 100 GM TP TID PRN PRN For Itching (Reported) Clobetasol-Expunged Drug, Do Not Renew! (Temovate 0.05%-Expunged Drug, Do Not Renew!) 60 Mg Tube 1 APPL TOP DAILY PRN PRN For Itching (Reported) APPLY TO AFFECTED AREA Oxycodone (Roxicodone) 5 Mg Tablet 5 MG PO TID PRN PRN For Pain (Reported) Zolpidem (Zolpidem) 10 Mg Tablet 10 MG PO HS PRN PRN For Insomnia (Reported) Followup Plan Disposition: Home Follow-up plan Primary care doctor in a week to start anti hyperglycemic agent for diabetes Discharge Diet: Low fat, Low Sodium, Diabetic Discharge Activity: No restrictions Follow-up in: 1 week (Primary Care Doctor ) Time spent 35 minutes. Patient seen and examined on the day of discharge Ulises Hamm MD Aug 16, 2016 13:30
--- NOTE | 2016-08-16 16:16 | NUR ---
Social Work Note Readiness for Discharge: D/A: The Pt is a 61 y/o male that was admitted on 08/14/16 for acute pancreatitis, pseduocyst. Pt is ready for discharge, no needs identified. P: Pt to discharge home today with POV transportation, no needs identified. Celsa Colunga, [employer] JARVIS Blevins
== END 2016-08-16 12:48 | disposition home or self-care (01) | DRG 439 ==
LOC: SED 20:38 → MOC 08-14 13:01
PROVIDERS: ADMIT Internal Medicine; ATTEND Internal Medicine
DX: K85.90 Acute pancreatitis without necrosis or infection, unspecified (principal); K86.3 Pseudocyst of pancreas; E11.9 Type 2 diabetes mellitus without complications; G89.29 Other chronic pain; F10.10 Alcohol abuse, uncomplicated; I10 Essential (primary) hypertension; F41.9 Anxiety disorder, unspecified; F17.200 Nicotine dependence, unspecified, uncomplicated; R21 Rash and other nonspecific skin eruption